=== PATIENT | male | born 1985 | race American Indian/Alaskan Native ===

== ENCOUNTER 2016-02-18 01:32 | Emergency (ER) | payer BC ==
[2016-02-18 02:27] VITALS: BP 161/104
[2016-02-18 03:04] LABS: Basophils % (Auto) 0.4 % (0.0-1.8); Eosinophils % (Auto) 0.4 % (0.0-4.3); Hematocrit 38.4 % (35.5-45.6); Hemoglobin 12.7 gm/dl (11.8-15.2); Mean Corpuscular HGB Conc 33 % (32-34); Mean Corpuscular Hemoglobin 27 pg (28-32); Mean Corpuscular Volume 83 fl (84-94); Platelet Count 212 K/mm3 (140-440); Red Blood Count 4.63 M/mm3 (3.65-5.03); Red Cell Distribution Width 12.9 % (13.2-15.2); White Blood Count 7.3 K/mm3 (4.5-11.0)
[2016-02-18 03:15] LABS: BUN/Creatinine Ratio 8.33; Blood Urea Nitrogen 10 mg/dL (9-20); Calcium 9.4 mg/dL (8.4-10.2); Carbon Dioxide 28 mmol/L (22-30); Chloride 98.4 mmol/L (98-107); Creatine Kinase 452 units/L (55-170); Glucose 152 mg/dL (75-100); Potassium 4.4 mmol/L (3.6-5.0); Sodium 139 mmol/L (137-145)
[2016-02-18 03:22] LABS: Anion Gap 17 mmol/L
--- NOTE | 2016-02-20 14:14 | ED Elopement Review ---
ED Pt Elopement review - Results review Lab results: Laboratory Tests 02/18/16 02/18/16 02:34 02:34 WBC 7.3 RBC 4.63 Hgb 12.7 Hct 38.4 MCV 83 L MCH 27 L MCHC 33 RDW 12.9 L Plt Count 212 Lymph % (Auto) 21.1 [place] % (Auto) 7.4 H Eos % (Auto) 0.4 Baso % (Auto) 0.4 Lymph # 1.5 [place] # 0.5 Eos # 0.0 Baso # 0.0 Seg Neutrophils % 70.7 H Seg Neutrophils # 5.2 Sodium 139 Potassium 4.4 Chloride 98.4 Carbon Dioxide 28 Anion Gap 17 BUN 10 Creatinine 1.2 Estimated GFR > 60 BUN/Creatinine Ratio 8.33 Glucose 152 H Calcium 9.4 Total Creatine Kinase 452 H Troponin T < 0.010 - Call Back decision Pt Call Back Decision: No action required
== END 2016-02-18 19:00 | disposition left against medical advice (07) ==
LOC: ED 01:32
DX: R68.83 Chills (without fever) (principal); M79.1 Myalgia; Z53.21 Procedure and treatment not carried out due to patient leaving prior to being seen by health care provider
CPT/HCPCS: 36415; 80048; 82550; 84484; 85025; 93005; 93010

== ENCOUNTER 2019-11-11 07:38 | Emergency (ER) | payer BC ==
--- NOTE | 2019-11-11 09:06 | Emergency Department Report ---
ED General Adult HPI - General Chief complaint: Arrhythmia/Palpitations Stated complaint: FAST HB Time Seen by Provider: 11/11/19 08:40 Source: patient Mode of arrival: Ambulatory Limitations: No Limitations - History of Present Illness Initial comments: 33-year-old male with a history of hypertension complains of heart racing. Patient states that he got up to go to the bathroom he experienced approximately 2 minutes of a rapid heart rate. He went to the bathroom and laid down again. He experienced some recurrent symptoms of the same which did not persist. He did not describe syncope, shortness of breath, dizziness, nausea or any chest pain. He stated he had not experienced anything like this before. He has no history of cardiovascular disease beyond hypertension. He states he takes his blood pressure medicine at night and was compliant. His initial blood pressure was elevated but on my encounter he was well within the normal range. He is asymptomatic at this time. He denied any unusual events last night, substance or alcohol abuse. He states he "ate P[place] sausage". -: Gradual Consistency: now resolved Associated Symptoms: denies other symptoms - Related Data Allergies Allergy/AdvReac Type Severity Reaction Status Date / Time No Known Allergies Allergy Unverified 02/18/16 02:23 ED Review of Systems ROS: Stated complaint: FAST HB Other details as noted in HPI Constitutional: denies: chills, fever Eyes: denies: eye pain, vision change ENT: denies: ear pain, throat pain Respiratory: denies: cough, shortness of breath, wheezing Cardiovascular: as per HPI, palpitations. denies: chest pain Endocrine: no symptoms reported Gastrointestinal: denies: abdominal pain, nausea, diarrhea Genitourinary: denies: urgency, dysuria Musculoskeletal: denies: back pain, joint swelling, arthralgia Skin: denies: rash, lesions Neurological: denies: headache, weakness, paresthesias Psychiatric: denies: anxiety, depression Hematological/Lymphatic: denies: easy bleeding, easy bruising ED Past Medical Hx - Past Medical History Previous Medical History?: Yes Hx Hypertension: Yes - Surgical History Past Surgical History?: No - Social History Smoking Status: Never Smoker Substance Use Type: None ED Physical Exam - General Limitations: No Limitations General appearance: alert, in no apparent distress, obese - Head Head exam: Present: atraumatic, normocephalic - Eye Eye exam: Present: normal appearance - ENT ENT exam: Present: mucous membranes moist - Neck Neck exam: Present: normal inspection - Respiratory Respiratory exam: Present: normal lung sounds bilaterally. Absent: respiratory distress - Cardiovascular Cardiovascular Exam: Present: regular rate, normal rhythm. Absent: systolic murmur, diastolic murmur, rubs, gallop - GI/Abdominal GI/Abdominal exam: Present: soft, normal bowel sounds. Absent: distended, tenderness, guarding, rebound - Rectal Rectal exam: Present: deferred - Extremities Exam Extremities exam: Present: normal inspection - Back Exam Back exam: Present: normal inspection - Neurological Exam Neurological exam: Present: alert, oriented X3, CN II-XII intact. Absent: motor sensory deficit - Psychiatric Psychiatric exam: Present: normal affect, normal mood - Skin Skin exam: Present: warm, dry, intact, normal color. Absent: rash ED Course Vital Signs 11/11/19 11/11/19 11/11/19 07:45 08:32 08:45 Temperature 98.2 F Pulse Rate 69 62 63 Respiratory 20 16 17 Rate Blood Pressure 170/102 135/88 O2 Sat by Pulse 98 97 Oximetry - Reevaluation(s) Reevaluation #1: No significant ectopy noted on monitor. Patient remains asymptomatic. He is appropriate for outpatient disposition and will be referred to cardiology. 11/11/19 10:06 ED Medical Decision Making - Lab Data Result diagrams: 11/11/19 08:57 11/11/19 08:57 Laboratory Results - last 24 hr 11/11/19 11/11/19 08:57 08:57 WBC 2.9 L RBC 4.38 Hgb 12.4 Hct 37.5 MCV 86 MCH 28 MCHC 33 RDW 12.7 L Plt Count 195 Seg Neutrophils % Physician Support Coordinator Sodium 141 Potassium 4.3 Chloride 103.1 Carbon Dioxide 25 Anion Gap 17 BUN 8 L Creatinine 0.8 Estimated GFR > 60 BUN/Creatinine Ratio 10 Glucose 117 H Calcium 9.3 - EKG Data -: EKG Interpreted by Me EKG shows normal: sinus rhythm, axis, intervals, QRS complexes, ST-T waves Rate: normal - EKG Data Interpretation: normal EKG Critical care attestation.: If time is entered above; I have spent that time in minutes in the direct care of this critically ill patient, excluding procedure time. ED Disposition Clinical Impression: Tachycardia Disposition: DC-01 TO HOME OR SELFCARE Is pt being admited?: No Does the pt Need Aspirin: No Condition: Stable Instructions: Supraventricular Tachycardia (ED) Additional Instructions: It is uncertain as to whether or not you may have had an abnormal heart rhythm. He may return to the emergency department should you experience this again as needed. Evaluation by a tool crib clerk is recommended. Avoid energy drinks, significant alcohol and/or caffeine consumption. Referrals: RAJAT DE LA ROSA MD [Staff Physician] - 3-5 Days PRIMARY CARE, [Primary Care Provider] - 2-3 Days Time of Disposition: 10:08
[2019-11-11 09:40] LABS: Hematocrit 37.5 % (35.5-45.6); Hemoglobin 12.4 gm/dl (11.8-15.2); Mean Corpuscular HGB Conc 33 % (32-34); Mean Corpuscular Volume 86 fl (84-94); Platelet Count 195 K/mm3 (140-440); Red Blood Count 4.38 M/mm3 (3.65-5.03); Red Cell Distribution Width 12.7 % (13.2-15.2)
[2019-11-11 09:54] LABS: BUN/Creatinine Ratio 10; Blood Urea Nitrogen 8 mg/dL (9-20); Calcium 9.3 mg/dL (8.4-10.2); Hemolysis Index 9
[2019-11-11 10:16] VITALS: BP 147/86
[2019-11-11 10:35] LABS: Basophils % (Manual) 0 % (0.0-1.8); Total Cells Counted 100
[2019-11-11 10:36] LABS: Platelet Estimate Consistent w Auto; RBC Morphology Normal
== END 2019-11-11 10:16 | disposition home or self-care (01) ==
LOC: ED 07:38
DX: R00.0 Tachycardia, unspecified (principal); I10 Essential (primary) hypertension
CPT/HCPCS: 36415; 80048; 85007; 85025; 93005